=== PATIENT | male | born 1980 | race Two or more races ===

== ENCOUNTER 2017-01-23 21:13 | Emergency (ER) | payer MEDICAID ==
[~2017-01-23] VITALS: Ht 175.3 cm; Wt 78.0 kg
[2017-01-23] MEDS ORDERED: KETOROLAC 30MG/ML VIAL IM ONE (23:30)
[2017-01-24 00:15] VITALS: BP 135/80
[2017-01-24] MEDS ORDERED: IBUPROFEN 600MG TABLET PO ONE (01:00)
== END 2017-01-24 01:50 | disposition home or self-care (01) ==
LOC: ER 21:13
DX: S60.221A Contusion of right hand, initial encounter (principal); I10 Essential (primary) hypertension; F17.210 Nicotine dependence, cigarettes, uncomplicated; F12.10 Cannabis abuse, uncomplicated; X83.8XXA Intentional self-harm by other specified means, initial encounter; Y93.89 Activity, other specified; Y92.018 Other place in single-family (private) house as the place of occurrence of the external cause
CPT/HCPCS: 73130; 99284; J1885